=== PATIENT | male | born 1930 | race Caucasian/White ===

== ENCOUNTER 2018-10-02 07:46 | Emergency (ER) | payer OTHER ==
--- NOTE | 2018-10-02 08:36 | RAD REPORT ---
EXAM DESCRIPTION: CT - [id number] - 10/02/2018 8:18 am CLINICAL HISTORY: Trauma, head and neck injury. SMASH INJURY COMPARISON: No comparisons TECHNIQUE: Axial 5 mm thick images of the head were obtained. Axial 2 mm thick images of the cervical spine were obtained with sagittal and coronal reconstruction images generated and reviewed. All CT scans are performed using dose optimization technique as appropriate and may include automated exposure control or mA/KV adjustment according to patient size. FINDINGS: CT HEAD WITHOUT CONTRAST: No acute hemorrhage, hydrocephalus or extra-axial collection is identified.No areas of brain edema or midline shift. The paranasal sinuses and mastoids are clear.The calvarium is intact. Vertebral arteries are calcifie d. CT CERVICAL SPINE WITHOUT CONTRAST: No fracture or subluxation.Degenerative changes present involving the lower cervical spine with disc thinning and posterior osteophyte.No prevertebral soft tissues swelling is identified. IMPRESSION: No acute intracranial or cervical spine findings. Mild lower cervical degenerative changes.
--- NOTE | 2018-10-02 09:04 | EDPHYS ---
Physician Documentation [facility] Name: Dar Martines Jr Age: 88 yrs Sex: Male : 1930 Arrival Date: 10/02/2018 Time: 07:49 Bed 7 Private MD: out of town, doctor ED Physician Felice Denton HPI: 10/02 08:39 This 88 yrs old Male presents to ER via Wheelchair with complaints of Fall snw Injury. 08:39 Details of fall: The patient fell from an upright position, attempting to sit in snw elevated recliner, sat on armrest and pushed forward. Fell to left side. Onset: The symptoms/episode began/occurred suddenly, just prior to arrival. Associated injuries: The patient sustained injury to the head, abrasion, contusion, swelling, dorsum of left hand, contusion. Severity of symptoms: At their worst the symptoms were mild. The patient has experienced similar episodes in the past[facility] Historical: - Allergies: 08:13 PENICILLINS; sv - Home Meds: 08:13 lantanoprost [Active]; fluticasone 50 mcg/actuation nasal spsn 1 spray 2 times per day sv [Active]; diclofenac sodium topical topical 2 times per day [Active]; metoprolol succinate 100 mg oral Tb24 1 tab once daily [Active]; vitamin P92-yjolo acid 500-400 mcg oral tab daily [Active]; finasteride 5 mg oral tab 1 tab once daily [Active]; terazosin 1 mg oral cap 1 cap nightly [Active]; Lasix 40 mg Oral tab 1 tab 2 times per day [Active]; benzonatate 100 mg oral cap 1 cap TID prn [Active]; lovastatin 20 mg Oral tab 1 tab nightly [Active]; lisinopril 10 mg Oral tab 1 tab once daily [Active]; cetirizine 10 mg oral tab 1 tab once daily [Active]; Warfarin Oral [Active]; amiodarone 200 mg Oral tab 1 tab once daily [Active]; cholecalciferol (vitamin D3) 400 mg BID miscellaneous [Active]; tramadol 50 mg Oral tab twice a day [Active]; metformin 500 mg Oral tab 1 tab 2 times per day [Active]; - PMHx: 08:13 Hypertension; sv - PSHx: 08:13 cyst removal; sv - Immunization history:: Adult Immunizations up to date. - Social history:: Smoking status: Patient/guardian denies using tobacco. - Ebola Screening: : No symptoms or risks identified at this time. ROS: 08:36 Constitutional: Negative for fever, chills, and weight loss, Eyes: Negative for injury, snw pain, redness, and discharge, ENT: Negative for injury, pain, and discharge, Neck: Negative for injury, pain, and swelling, Cardiovascular: Negative for chest pain, palpitations, and edema, Respiratory: Negative for shortness of breath, cough, wheezing, and pleuritic chest pain, Abdomen/GI: Negative for abdominal pain, nausea, vomiting, diarrhea, and constipation, Back: Negative for injury and pain, : Negative for injury, bleeding, discharge, and swelling. 08:36 MS/extremity: Positive for injury or acute deformity, contusion, tenderness, of the dorsum of left hand. 08:36 Skin: Positive for abrasion(s), of the left side of forehead, contusion. Exam: 08:34 Constitutional: This is a well developed, well nourished patient who is awake, alert, snw and in no acute distress. Eyes: Pupils equal round and reactive to light, extra-ocular motions intact. Lids and lashes normal. Conjunctiva and sclera are non-icteric and not injected. Cornea within normal limits. Periorbital areas with no swelling, redness, or edema. ENT: Nares patent. No nasal discharge, no septal abnormalities noted. Tympanic membranes are normal and external auditory canals are clear. Oropharynx with no redness, swelling, or masses, exudates, or evidence of obstruction, uvula midline. Mucous membranes moist. Neck: Trachea midline, no thyromegaly or masses palpated, and no cervical lymphadenopathy. Supple, full range of motion without nuchal rigidity, or vertebral point tenderness. No Meningismus. Chest/axilla: Normal chest wall appearance and motion. Nontender with no deformity. No lesions are appreciated. Cardiovascular: Regular rate and rhythm with a normal S1 and S2. No gallops, murmurs, or rubs. Normal PMI, no JVD. No pulse deficits. Respiratory: Lungs have equal breath sounds bilaterally, clear to auscultation and percussion. No rales, rhonchi or wheezes noted. No increased work of breathing, no retractions or nasal flaring. Abdomen/GI: Soft, non-tender, with normal bowel sounds. No distension or tympany. No guarding or rebound. No evidence of tenderness throughout. Back: No spinal tenderness. No costovertebral tenderness. Full range of motion. MS/ Extremity: Pulses equal, no cyanosis. Neurovascular intact. Full, normal range of motion. Tenderness and edema to right dorsal hand at distal metacarpals 3 and 4 Neuro: Awake and alert, GCS 15, oriented to person, place, time, and situation. Cranial nerves II-XII grossly intact. Motor strength 5/5 in all extremities. Sensory grossly intact. Cerebellar exam normal. Normal gait. Psych: Awake, alert, with orientation to person, place and time. Behavior, mood, and affect are within normal limits. 08:34 Skin: Appearance: normal except for affected area, injury, contusion(s), that are deep, of the left side of forehead. Vital Signs: 08:01 BP 148 / 81; Pulse 79; Resp 16; Temp 97.8; Pulse Ox 100% ; Weight 98.88 kg; Height 5 sv ft. 10 in. (177.80 cm); Pain 3/10; 08:50 BP 145 / 76; Pulse 80; Resp 16; Temp 97.8; Pulse Ox 98% ; sv 08:01 Body Mass Index 31.28 (98.88 kg, 177.80 cm) sv Eliecer Coma Score: 08:01 Eye Response: spontaneous(4). Verbal Response: oriented(5). Motor Response: obeys sv commands(6). Total: 15. 08:50 Eye Response: spontaneous(4). Verbal Response: oriented(5). Motor Response: obeys sv commands(6). Total: 15. 09:23 Eye Response: spontaneous(4). Verbal Response: oriented(5). Motor Response: obeys sv commands(6). Total: 15. Trauma Score (Adult): 08:01 Eye Response: spontaneous(1); Verbal Response: oriented(1); Motor Response: obeys sv commands(2); Systolic BP: > 89 mm Hg(4); Respiratory Rate: 10 to 29 per min(4); Eliecer Score: 15; Trauma Score: 12 08:50 Eye Response: spontaneous(1); Verbal Response: oriented(1); Motor Response: obeys sv commands(2); Systolic BP: > 89 mm Hg(4); Respiratory Rate: 10 to 29 per min(4); [place] Score: 15; Trauma Score: 12 09:23 Eye Response: spontaneous(1); Verbal Response: oriented(1); Motor Response: obeys sv commands(2); Systolic BP: > 89 mm Hg(4); Respiratory Rate: 10 to 29 per min(4); Eliecer Score: 15; Trauma Score: 12 MDM: 07:55 Patient medically screened. snw 09:04 Data reviewed: vital signs, nurses notes. Data interpreted: Pulse oximetry: on room air snw is 98 %. Interpretation: normal. Counseling: I had a detailed discussion with the patient and/or guardian regarding: the historical points, exam findings, and any diagnostic results supporting the discharge/admit diagnosis, radiology results, the need for outpatient follow up, to return to the emergency department if symptoms worsen or persist or if there are any questions or concerns that arise at home. Special discussion: I have referred the patient to see his PCP for further evaluation of high blood pressure. Based on the patient's history, exam and DX evaluation, there is no indication for emergent intervention or inpatient TX. It is understood by the patient/guardian that if the SXs persist or worsen they need to return immediately for re-evaluation. Based on the history and exam findings, there is no indication for further emergent testing or inpatient evaluation. I discussed with the patient/guardian the need to see the primary care provider for further evaluation of the symptoms. 10/02 08:06 Order name: CT Head C Spine; Complete Time: 08:38 snw 10/02 08:16 Order name: Hand Left 3 View XRAY snw 10/02 08:06 Order name: EKG; Complete Time: 08:06 snw 10/02 08:06 Order name: EKG - Nurse/Tech; Complete Time: 08:18 snw 10/02 08:36 Order name: Ice pack; Complete Time: 08:46 snw 10/02 08:48 Order name: Zeb Wrap: left hand; Complete Time: 09:22 snw 10/02 09:03 Order name: Wound Care; Complete Time: 09:22 snw 10/02 09:03 Order name: Wound dressing; Complete Time: :22 snw Administered Medications: No medications were administered Disposition: 12:32 Co-signature as Attending Physician, Felice Denton MD. rn Disposition: 10/02/18 09:03 Discharged to Home. Impression: Fall on same level from slipping, tripping and stumbling, Unspecified injury of head, Contusion of left hand. - Condition is Stable. - Discharge Instructions: Abrasion, Cast or Splint Care, Adult, Hand Contusion, Head Injury, Adult, Fall Prevention in the Home, RICE for Routine Care of Injuries, Wound Care. - Medication Reconciliation Form, Thank You Letter, Antibiotic Education, Prescription Opioid Use form. - Follow up: Private Physician; When: Today; Reason: Recheck today's complaints, Continuance of care, Re-evaluation by your physician. Follow up: Emergency Department; When: As needed; Reason: Worsening of condition. Signatures: Dispatcher [employer] Megan Nguyen RN RN Alexandria Santiago, ECOMMERCE MARKETING SPECIALIST-C ECOMMERCE MARKETING SPECIALIST-Csnw Felice Denton MD MD rn complex care: (The following items were deleted from the chart) 09:24 09:03 10/02/2018 09:03 Discharged to Home. Impression: Fall on same level from sv slipping, tripping and stumbling; Unspecified injury of head; Contusion of left hand. Condition is Stable. Discharge Instructions: Cast or Splint Care, Adult, Hand Contusion, Head Injury, Adult, Fall Prevention in the Home, RICE for Routine Care of Injuries. Forms are Medication Reconciliation Form, Thank You Letter, Antibiotic Education, Prescription Opioid Use. Follow up: Private Physician; When: Today; Reason: Recheck today's complaints, Continuance of care, Re-evaluation by your physician. Follow up: Emergency Department; When: As needed; Reason: Worsening of condition. snw
--- NOTE | 2018-10-02 09:04 | ER ---
Nurse's Notes [facility] Name: Dar Martines Jr Age: 88 yrs Sex: Male : 1930 Arrival Date: 10/02/2018 Time: 07:49 Bed 7 Private MD: out of town, doctor Diagnosis: Fall on same level from slipping, tripping and stumbling;Unspecified injury of head;Contusion of left hand Presentation: 10/02 07:58 Presenting complaint: Patient states: "I sat on too far on the edge of my recliner when sv I was trying to sit on it and I fell to the carpet." Happened about 0300. Denies LOC. Abrasions noted to the left forehead, eye and bruising noted. Care prior to arrival: None. Mechanism of Injury: Fall sitting position. Trauma event details: Injury occurred in the [facility] [place], Injury occurred: at home. Injury occurred: October 02, 2018 Injury occurred at: 03:00. 07:58 Acuity: LASHANDA 3 sv 07:58 Method Of Arrival: Wheelchair sv 08:07 Transition of care: patient was not received from another setting of care. Onset of sv symptoms was October 02, 2018. Risk Assessment: Do you want to hurt yourself or someone else? Patient reports no desire to harm self or others. Initial Sepsis Screen: Does the patient meet any 2 criteria? No. Patient's initial sepsis screen is negative. Does the patient have a suspected source of infection? No. Patient's initial sepsis screen is negative. Trauma Activation: Not Applicable Physician: ED Physician; Name: ; Notified At: ; Arrived At: Physician: General Surgeon; Name: ; Notified At: ; Arrived At: Physician: Radiology; Name: ; Notified At: ; Arrived At: Physician: Respiratory; Name: ; Notified At: ; Arrived At: Physician: Lab; Name: ; Notified At: ; Arrived At: Historical: - Allergies: 08:13 PENICILLINS; sv - Home Meds: 08:13 lantanoprost [Active]; fluticasone 50 mcg/actuation nasal spsn 1 spray 2 times per day sv [Active]; diclofenac sodium topical topical 2 times per day [Active]; metoprolol succinate 100 mg oral Tb24 1 tab once daily [Active]; vitamin I80-ajmkx acid 500-400 mcg oral tab daily [Active]; finasteride 5 mg oral tab 1 tab once daily [Active]; terazosin 1 mg oral cap 1 cap nightly [Active]; Lasix 40 mg Oral tab 1 tab 2 times per day [Active]; benzonatate 100 mg oral cap 1 cap TID prn [Active]; lovastatin 20 mg Oral tab 1 tab nightly [Active]; lisinopril 10 mg Oral tab 1 tab once daily [Active]; cetirizine 10 mg oral tab 1 tab once daily [Active]; Warfarin Oral [Active]; amiodarone 200 mg Oral tab 1 tab once daily [Active]; cholecalciferol (vitamin D3) 400 mg BID miscellaneous [Active]; tramadol 50 mg Oral tab twice a day [Active]; metformin 500 mg Oral tab 1 tab 2 times per day [Active]; - PMHx: 08:13 Hypertension; sv - PSHx: 08:13 cyst removal; sv - Immunization history:: Adult Immunizations up to date. - Social history:: Smoking status: Patient/guardian denies using tobacco. - Ebola Screening: : No symptoms or risks identified at this time. Screenin:01 Abuse screen: Denies threats or abuse. Denies injuries from another. Tuberculosis sv screening: No symptoms or risk factors identified. 08:17 Nutritional screening: No deficits noted. Fall Risk No fall in past 12 months (0 pts). sv No secondary diagnosis (0 pts). No IV (0 pts). Ambulatory Aid- Crutches/Cane/Walker (15 pts). Gait- Normal/Bed Rest/Wheelchair (0 pts) Mental Status- Oriented to own ability (0 pts). Total Jade Fall Scale indicates No Risk (0-24 pts). Primary Survey: 08:01 NO uncontrolled hemorrhage observed. A: The patient is alert. Airway: patent, No sv supplemental oxygen in use on arrival. Oral cavity: clear. Breathing/Chest: Respiratory pattern: regular, Respiratory effort: spontaneous, unlabored, Chest inspection: symmetrical rise and fall of the chest. Circulation: Pulses: palpable right radial artery and left radial artery. Skin color: pink, Skin temperature: warm, dry. Disability Alert. Exposure/Environment: All clothing and personal items were removed. Forensic evidence collection is not deemed to be indicated at this time. Items placed in patient belonging bag. There is no evidence of uncontrolled external bleeding. Obvious injury(ies) are noted at this time: abrasions to the left forehead and eye. 08:52 Reassessment Airway Airway Patent Oxygen No O2 Oral cavity Clear Trachea Midline sv Breathing/Chest Respiratory pattern Regular Respiratory effort Spontaneous Unlabored Chest inspection Symmetrical Circulation Heart tones Present Pulses Palpable Color [place] Temperature Warm Dry. Secondary Survey: 08:01 HEENT: No deficits noted. Gastrointestinal: No deficits noted. : No deficits noted. sv No signs and/or symptoms were reported regarding the genitourinary system. Musculoskeletal: No deficits noted. No signs and/or symptoms reported regarding the musculoskeletal system. Injury Description: Abrasion sustained to left side of forehead, left eye and left mosque is scabbed, was sustained 4-6 hours ago. Assessment: 09:23 Reassessment: Patient appears in no apparent distress at this time. No changes from sv previously documented assessment. Patient and/or family updated on plan of care and expected duration. Pain level reassessed. Patient is alert, oriented x 3, equal unlabored respirations, skin warm/dry/pink. Vital Signs: 08:01 BP 148 / 81; Pulse 79; Resp 16; Temp 97.8; Pulse Ox 100% ; Weight 98.88 kg; Height 5 sv ft. 10 in. (177.80 cm); Pain 3/10; 08:50 BP 145 / 76; Pulse 80; Resp 16; Temp 97.8; Pulse Ox 98% ; sv 08:01 Body Mass Index 31.28 (98.88 kg, 177.80 cm) sv [place] Coma Score: 08:01 Eye Response: spontaneous(4). Verbal Response: oriented(5). Motor Response: obeys sv commands(6). Total: 15. 08:50 Eye Response: spontaneous(4). Verbal Response: oriented(5). Motor Response: obeys sv commands(6). Total: 15. 09:23 Eye Response: spontaneous(4). Verbal Response: oriented(5). Motor Response: obeys sv commands(6). Total: 15. Trauma Score (Adult): 08:01 Eye Response: spontaneous(1); Verbal Response: oriented(1); Motor Response: obeys sv commands(2); Systolic BP: > 89 mm Hg(4); Respiratory Rate: 10 to 29 per min(4); [place] Score: 15; Trauma Score: 12 08:50 Eye Response: spontaneous(1); Verbal Response: oriented(1); Motor Response: obeys sv commands(2); Systolic BP: > 89 mm Hg(4); Respiratory Rate: 10 to 29 per min(4); Eliecer Score: 15; Trauma Score: 12 09:23 Eye Response: spontaneous(1); Verbal Response: oriented(1); Motor Response: obeys sv commands(2); Systolic BP: > 89 mm Hg(4); Respiratory Rate: 10 to 29 per min(4); Eliecer Score: 15; Trauma Score: 12 ED Course: 07:49 Patient arrived in ED. mr 07:49 out of town, doctor is Private Physician. mr 07:55 Alexandira Jackson [facility]-C [facility] snw 07:55 Felice Denton MD is Attending Physician. snw 08:01 Thermoregulation: warm blanket given to patient. sv 08:01 Patient has correct armband on for positive identification. Placed in gown. Bed in low sv position. Call light in reach. Side rails up X2. Adult w/ patient. patient monitor on. Pulse ox on. NIBP on. 08:01 Arm band placed on. sv 08:05 Megan Toro, EMETERIO is Primary Nurse. sv 08:07 Triage completed. sv 08:11 EKG done, by pharmacist technician. reviewed by Alexandria WHELAN. at1 08:[address] via stretcher. sv 08:17 CT completed. Patient tolerated procedure well. Patient moved to radiology Patient sj moved back from CT. 08:17 Patient maintains SpO2 saturation greater than 95% on room air. sv 08:19 CT Head C Spine In Process Unspecified. EDMS 08:25 X-ray completed. Patient tolerated procedure well. Patient moved to radiology via jb2 stretcher. Patient moved back from radiology. 08:34 Hand Left 3 View XRAY In Process Unspecified. EDMS 09:22 No provider procedures requiring assistance completed. Patient did not have IV access sv during this emergency room visit. Wound care: to abrasion, located on left side of forehead and left eye was cleaned with Hibiclens, dressed with Neosporin, Patient tolerated well. 09:22 Zeb wrap to left wrist. sv Administered Medications: No medications were administered Intake: 08:01 PO: 0ml; Total: 0ml. sv 09:23 PO: 200ml (Water); Total: 200ml. sv Output: 08:01 Urine: 0ml; Total: 0ml. sv 08:55 Urine: 200ml (Voided); Total: 200ml. sv Outcome: 09:03 Discharge ordered by . snw 09:23 Discharged to home via wheelchair, with family. sv 09:23 Condition: stable 09:23 Discharge instructions given to patient, family, Instructed on discharge instructions, follow up and referral plans. wound care, head injury precautions Demonstrated understanding of instructions, follow-up care, wound care, head injury precautions 09:24 Patient's length of stay was not longer than 2 hours. sv 09:24 Patient left the ED. sv Signatures: Dispatcher [employer] Megan Nguyen RN RN sv Therrien, Shelly, TRAIN BRAKEMAN-C TRAIN BRAKEMAN-Kimberly Lopezpaige, Kaylyn Burton Amanda, shim plug cutter EKG Tat1
[2018-10-02 09:30] VITALS: TEMP 97.8
[2018-10-02 09:31] VITALS: BP 145/76; O2SAT 98
--- NOTE | 2018-10-02 09:45 | RAD REPORT ---
EXAM DESCRIPTION: RAD - Hand Left 3 View - 10/02/2018 8:33 am CLINICAL HISTORY: Pain;Smash injury COMPARISON: No comparisons FINDINGS: Soft tissue swelling is seen along the dorsum of the hand at the level of the metacarpal h toan. A definitive fracture is not seen. Prominent arthritic changes are noted.
--- NOTE | 2018-10-02 11:23 | EKG ---
Test Date: 2018-10-02 Test Time: 08:09:05 Condominium Manager: MINO MEASUREMENT RESULTS: Intervals: Rate: 80 IA: QRSD: 202 QT: 490 QTc: 565 [place]: P: IA: QRS: 193 T: 22 INTERPRETIVE STATEMENTS: Electronic ventricular pacemaker Compared to ECG 01/13/2014 10:39:32 Rhythm is now consistent with VVI pacing Electronically Signed On 10-02-18 11:23:29 CDT by Josh Hoffmann
== END 2018-10-02 09:24 | disposition home or self-care (01) ==
LOC: ER 07:46
DX: S00.81XA Abrasion of other part of head, initial encounter (principal); S60.222A Contusion of left hand, initial encounter; W01.0XXA Fall on same level from slipping, tripping and stumbling without subsequent striking against object, initial encounter; Y93.89 Activity, other specified; Y92.9 Unspecified place or not applicable; Z79.01 Long term (current) use of anticoagulants; Z88.0 Allergy status to penicillin; I10 Essential (primary) hypertension
CPT/HCPCS: 70450; 72125; 93005; 99285